=== PATIENT | male | born 1960 | race Caucasian/White ===

== ENCOUNTER 2016-08-16 01:54 | Emergency (ER) | payer BC ==
[2016-08-16] MEDS ORDERED: NS 1,000 ML IV ONE (02:05)
--- NOTE | 2016-08-16 02:08 | EDPHY ---
H & P Stated Complaint: Pain in the right flank Time Seen by Provider: 08/16/16 02:00 HPI/ROS: CHIEF COMPLAINT: right flank pain since 45 minutes prior to arrival HISTORY OF PRESENT ILLNESS: previously healthy 46-year-old male who has yet to see his family physician for several years. However, he states he has no underlying medical problems. He felt well during the day yesterday. There was a fair amount of sun exposure early in the day but no untoward problems. No syncope or palpitations. Did not recall anything that might have strained his back. He felt well when he went to bed. However he woke approximately 45 minutes prior to admission with a very intense, sharp sensation severe pain to the right flank. Took 200 mg of ibuprofen p.o. he found himself unable to hold still, pacing 2nd to the pain. He did fine resolve also nauseated but not diaphoretic. He did not vomit until he got here in the parking lot at which time he vomited once. As it is dark out he cannot tell if he has any blood or coffee-grounds. At home he did far urinate. Was not bloody to the naked eye. It hurt so bad that he had moved shifting could not hold still. He did not notice it to be any worse with movement itself. Pain itself overtime did improve to the point where he is only described as moderate at the time of my interview. Pichardo is a home was severe. Furthermore the pain is now expanded to include the right lower quadrant in fact, is actually worse than right quadrant at this point in time that it is in the back - either which is better as the back was, flank, when he was at home REVIEW OF SYSTEMS: Constitutional: No fever, no chills. Eyes: No discharge ENT: No sore throat, though agrees is membranes are dry at this point in time Cardiovascular: No chest pain, no palpitations. Respiratory: No cough, shortness of breath. Gastrointestinal: See above Genitourinary: See above Musculoskeletal: See above Skin: No rashes. Neurological: No headache. 10 point ROS otherwise negative Source: Patient Exam Limitations: No limitations - Personal History Current Tetanus/Diphtheria Vaccine: No Current Tetanus Diphtheria and Acellular Pertussis (TDAP): No - Medical/Surgical History Hx Asthma: No Hx Chronic Respiratory Disease: No Hx Diabetes: No Hx Cardiac Disease: No Hx Renal Disease: No Hx Cirrhosis: No Hx Alcoholism: No Hx HIV/AIDS: No Hx Splenectomy or Spleen Trauma: No - Family History Significant Family History: Other (Father with kidney stones/) - Social History Smoking Status: Never smoked Alcohol Use: None Drug Use: None Additional Social History: 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 - Physical Exam Exam: General Appearance: Alert, no distress. Afebrile. Normal phonation. No respiratory distress. Slightly pale. Not diaphoretic. Temperature normal Eyes: Pupils equal and round no pallor or injection. No icterus ENT, Mouth: Mucous membranes dry. Pharynx without erythema or exudate. TM Clear. Neck: No adenopathy. Supple. No JVD. Trachea in midline. Respiratory: There are no retractions, lungs are clear to auscultation. Cardiovascular: Regular rate and rhythm. Abdomen: Soft and nontender, no masses, bowel sounds normal. Femoral pulses equal, symmetrical, 2+. Neurological: Ox3. No motor weakness. Sensation intact. Gait nl. Skin: Warm and dry, no rashes. Musculoskeletal: No joint swelling. Extremities: No edema. Homans sign negative. No cords. Psychiatric: Normal affect. Constitutional: Initial Vital Signs Temperature (C) 36.8 C 08/16/16 01:55 Heart Rate 50 L 08/16/16 01:55 Respiratory Rate 16 08/16/16 01:55 Blood Pressure 162/94 H 08/16/16 01:55 O2 Sat (%) 93 08/16/16 01:55 O2 Delivery Mode Room Air Allergies/Adverse Reactions: No Known Allergies Allergy (Unverified 02/22/09 14:24) Home Medications: Medication Instructions Recorded Indomethacin [Indocin 25 mg (*)] 50 mg PO TID #30 cap 08/16/16 Ondansetron Odt [Zofran Odt 4 mg 8 mg PO TID PRN #5 tab 08/16/16 (*)] Oxycodone HCl 10 mg PO Q6H PRN #15 capsule 08/16/16 Tamsulosin HCl [Flomax 0.4 MG (*)] 0.4 mg PO DAILY #7 cap 08/16/16 Medical Decision Making - Diagnostics Imaging Results: CT scan as interpreted by the radiologist and discussed with radiologist and reviewed by me: 7 x 7 x 4 mm stone in the right mid ureter along with moderate hydronephrosis. Incidental findings of renal cyst as well as L2 compression fracture Imaging: Discussed imaging studies w/ scallop dredger Radiologist, I viewed and interpreted images myself ED Course/Re-evaluation: When initially interviewed the patient he declined fentanyl and excepted Toradol. He was given Toradol 30 mg IV with substantial improvement of his discomfort, he was virtually pain-free at discharge CT scan was performed. Without IV contrast. Upon my reading I see that he has a hydronephrosis on the right in a 8 x 3 mm stone on the right mid ureter overlying vertebral body 4 Reviewed with the patient the following: Kidney stone of such size that he may need lithotripsy per urology L2 compression fracture with stenosis Right renal cyst - which the radiologist is recommending that he have an ultrasound, to be ordered by his PCP or urologist The urinalysis did show hematuria but no signs of bacteria or white cells to be concerned with respect to possible infection. Laboratory studies did show preserved renal function with a creatinine 1.2 and stable hemogram. Differential Diagnosis: Differential diagnosis includes, but is not limited to: Gastroenteritis, dehydration, diverticulitis, hepatitis, cholecystitis, appendicitis, renal colic, pyelonephritis. - Data Points Laboratory Results: Laboratory Results 08/16/16 02:03 08/16/16 02:03 08/16/16 08/16/16 08/16/16 02:46 02:03 02:03 WBC 5.39 10^3/uL 10^3/uL (3.80-9.50) RBC 5.01 10^6/uL 10^6/uL (4.40-6.38) Hgb 14.9 g/dL g/dL (13.7-17.5) Hct 45.1 % % (40.0-51.0) MCV 90.0 fL fL (81.5-99.8) MCH 29.7 pg pg (27.9-34.1) MCHC 33.0 g/dL g/dL (32.4-36.7) RDW 13.8 % % (11.5-15.2) Plt Count 158 10^3/uL 10^3/uL (150-400) MPV 11.1 fL fL (8.7-11.7) Neut % (Auto) 62.4 % % (39.3-74.2) Lymph % (Auto) 26.7 % % (15.0-45.0) [place] % (Auto) 9.5 % % (4.5-13.0) Eos % (Auto) 0.4 % L % (0.6-7.6) Baso % (Auto) 0.6 % % (0.3-1.7) Nucleat RBC Rel Count 0.0 % % (0.0-0.2) Absolute Neuts (auto) 3.37 10^3/uL 10^3/uL (1.70-6.50) Absolute Lymphs (auto) 1.44 10^3/uL 10^3/uL (1.00-3.00) Absolute Monos (auto) 0.51 10^3/uL 10^3/uL (0.30-0.80) Absolute Eos (auto) 0.02 10^3/uL L 10^3/uL (0.03-0.40) Absolute Basos (auto) 0.03 10^3/uL 10^3/uL (0.02-0.10) Absolute Nucleated RBC 0.00 10^3/uL 10^3/uL (0-0.01) Immature Gran % 0.4 % % (0.0-1.1) Immature Gran # 0.02 10^3/uL 10^3/uL (0.00-0.10) Sodium 142 mEq/L mEq/L (134-144) Potassium 3.7 mEq/L mEq/L (3.5-5.2) Chloride 104 mEq/L mEq/L (97-110) Carbon Dioxide 23 mEq/l mEq/l (22-31) Anion Gap 15 mEq/L mEq/L (8-16) BUN 25 mg/dL H mg/dL (7-23) Creatinine 1.2 mg/dL mg/dL (0.7-1.3) Estimated GFR > 60 Glucose 116 mg/dL H mg/dL (70-100) Calcium 9.0 mg/dL mg/dL (8.5-10.4) Urine Color YELLOW Urine Appearance CLEAR Urine pH 5.0 (5.0-7.5) Ur Specific [place] 1.015 (1.002-1.030) Urine Protein NEGATIVE (NEGATIVE) Urine Ketones NEGATIVE (NEGATIVE) Urine Blood 3+ H (NEGATIVE) Urine Nitrate NEGATIVE (NEGATIVE) Urine Bilirubin NEGATIVE (NEGATIVE) Urine Urobilinogen 0.2 EU EU (0.2-1.0) Ur Leukocyte Esterase NEGATIVE (NEGATIVE) Urine RBC 25-50 /hpf H /hpf (0-3) Urine WBC 0-1 /hpf /hpf (0-3) Ur Epithelial Cells NONE SEEN /lpf /lpf (NONE-1+) Urine Mucus 2+ /lpf H /lpf (NONE-1+) Urine Glucose NEGATIVE (NEGATIVE) Medications Given: Discontinued Medications Sodium Chloride (Ns) 1,000 mls @ 0 mls/hr IV ONCE ONE PRN Reason: Wide Open Stop: 08/16/16 02:06 Last Admin: 08/16/16 02:05 Dose: 1,000 mls Ketorolac Tromethamine (Toradol) 30 mg IVP EDNOW ONE Stop: 08/16/16 02:10 Last Admin: 08/16/16 02:09 Dose: 30 mg Ondansetron HCl (Zofran Odt 4 Mg Prepack#2) 1 btl TAKEHOME EDNOW ONE Stop: 08/16/16 03:11 Last Admin: 08/16/16 03:30 Dose: 1 btl Oxycodone/Acetaminophen (Percocet 5/325mg Prepack#4) 1 btl TAKEHOME EDNOW ONE Stop: 08/16/16 03:11 Last Admin: 08/16/16 03:30 Dose: 1 btl Tamsulosin HCl (Flomax) 0.4 mg PO EDNOW ONE Stop: 08/16/16 03:12 Last Admin: 08/16/16 03:30 Dose: 0.4 mg Departure - Departure Disposition: Home, Routine, Self-Care Clinical Impression: Renal colic on right side, Ureterolithiasis Condition: Fair Instructions: Oxycodone/Acetaminophen (By mouth), Ondansetron (By mouth), Renal Colic (ED), Ureteral Stones (ED) Additional Instructions: Strain urine Call the urologist Return if the pain medications are not controlling her discomfort Take Indocin around the clock for the next 5 days Take the Flomax, regularly through the week Take the oxycodone and the Zofran as needed for the pain and nausea respectively when they return The radiologist is recommending a renal ultrasound to evaluate the renal cyst seen on her right kidney. Arrange this with her family doctor or the urologist. Referrals: Patient,NotPresent [Primary Care Provider] - As per Instructions Anu Reed MD [Medical Doctor] - As per Instructions Prescriptions: Indomethacin [Indocin 25 mg (*)] 50 mg PO TID #30 cap Ondansetron Odt [Zofran Odt 4 mg (*)] 8 mg PO TID PRN #5 tab PRN Reason: Nausea/Vomiting, Can'T Take Po Oxycodone HCl 10 mg PO Q6H PRN #15 capsule PRN Reason: pain Tamsulosin HCl [Flomax 0.4 MG (*)] 0.4 mg PO DAILY #7 cap
[2016-08-16] MEDS ORDERED: KETOROLAC 30 MG/1 ML SDV IVP ONE (02:09)
[2016-08-16] MEDS ORDERED: KETOROLAC 30 MG/1 ML SDV ONE (02:09)
[2016-08-16 02:13] LABS: % IMMATURE GRANULYOCYTES 0.4 % (0.0-1.1); ABSOLUTE IMMATURE GRANULOCYTES 0.02 10^3/uL (0.00-0.10); ADD DIFF? NO; ADD MORPH? NO; ADD SCAN? NO; ATYPICAL LYMPHOCYTE FLAG 10 (0-99); FRAGMENT RBC FLAG 0 (0-99); HEMATOCRIT 45.1 % (40.0-51.0); HEMOGLOBIN 14.9 g/dL (13.7-17.5); LEFT SHIFT FLG 0 (0-99); LIPEMIA HEMOLYSIS FLAG 80 (0-99); MEAN CELL HEMOGLOBIN 29.7 pg (27.9-34.1); MEAN PLATELET VOLUME 11.1 fL (8.7-11.7); PLATELET CLUMPS FLAG 10 (0-99); PLATELET COUNT 158 10^3/uL (150-400); RED BLOOD CELL COUNT 5.01 10^6/uL (4.40-6.38); RED CELL DISTRIBUTION WIDTH 13.8 % (11.5-15.2)
[2016-08-16 02:17] VITALS: TEMP 98.2
[2016-08-16 02:27] LABS: ANION GAP 15 mEq/L (8-16); CARBON DIOXIDE 23 mEq/l (22-31); CHLORIDE 104 mEq/L (97-110); CREATININE 1.2 mg/dL (0.7-1.3); GLOMERULAR FILTRATION RATE > 60; GLUCOSE 116 mg/dL (70-100); POTASSIUM 3.7 mEq/L (3.5-5.2); SODIUM 142 mEq/L (134-144)
[2016-08-16 02:58] LABS: COLOR YELLOW; LEUKOCYTE ESTERASE,URINE NEGATIVE (NEGATIVE); NITRITE,URINE NEGATIVE (NEGATIVE)
[2016-08-16 03:09] LABS: MUCUS 2+ /lpf (NONE-1+)
[2016-08-16 03:10] LABS: WBC,URINE 0-1 /hpf (0-3)
[2016-08-16] MEDS ORDERED: OXYCODONE/APAP 5/325MG PREPACK#4 BTL TAKEHOME ONE (03:10)
[2016-08-16] MEDS ORDERED: ONDANSETRON 4MG PREPACK#2 BTL TAKEHOME ONE (03:10)
[2016-08-16 03:11] LABS: RBC,URINE 25-50 /hpf (0-3)
[2016-08-16] MEDS ORDERED: TAMSULOSIN HCL 0.4 MG CAP PO ONE (03:11)
[2016-08-16 03:47] VITALS: BP 132/91; PULSE 55; RESP 15; O2SAT 95
== END 2016-08-16 03:40 | disposition home or self-care (01) ==
LOC: CED 01:54
DX: N20.1 Calculus of ureter (principal)
CPT/HCPCS: 74176-PO; 80048-PO; 81003-PO; 81015-PO; 85025-PO; 96374; J1885

== ENCOUNTER → 2016-08-18 | Outpatient (CLI) | payer BC | LOC: FIMAGING 09:16 | PROVIDERS: ATTEND Specialist | DX: N20.1 Calculus of ureter (principal); K59.00 Constipation, unspecified ==

== ENCOUNTER → 2016-08-26 | Outpatient (CLI) | payer BC | LOC: FIMAGING 13:08 | PROVIDERS: ATTEND Specialist | DX: N20.1 Calculus of ureter (principal) ==

== ENCOUNTER → 2016-09-20 | Outpatient (CLI) | payer BC | LOC: FIMAGING 09:02 | PROVIDERS: ATTEND Specialist | DX: N20.1 Calculus of ureter (principal) ==

== ENCOUNTER → 2016-10-01 | Outpatient (CLI) | payer BC | LOC: CIMAGING 15:41 | PROVIDERS: ATTEND Specialist | DX: N28.1 Cyst of kidney, acquired (principal); N13.30 Unspecified hydronephrosis; Z96.0 Presence of urogenital implants | CPT/HCPCS: 76770-PO ==

== ENCOUNTER → 2017-09-01 | Outpatient (CLI) | payer BC | LOC: FIMAGING 16:24 | PROVIDERS: ATTEND Family Medicine | DX: M79.89 Other specified soft tissue disorders (principal); M79.605 Pain in left leg ==

== ENCOUNTER 2018-01-23 06:33 | Emergency (ER) | payer BC ==
[2018-01-23] MEDS ORDERED: ONDANSETRON DISINTEGRATING 4 MG TAB PO ONE (06:52)
[2018-01-23] MEDS ORDERED: IBUPROFEN 600 MG TAB PO ONE (06:54)
--- NOTE | 2018-01-23 06:57 | EDPHY ---
H & P Smoking Status: Never smoked Time Seen by Provider: 01/23/18 06:44 HPI/ROS: This patient slipped on stairs shortly prior to arrival landing on left flank with 10/10 pain with movement to the area and moderate to severe pain at rest since the fall. He denies any other injuries from the incident. He has not taken any medication for the pain prior to arrival. His drove him here by private vehicle for evaluation. He did urinate prior to arrival in noticed no gross hematuria. ROS: Constitutional: No complaints neuro: No numbness or tingling Musculoskeletal: No other injuries 5 point ROS is otherwise negative (Marcell Edwards) Physical Exam: Physical Exam Vital signs are normal. General: No acute distress HEENT: Atraumatic. Neck: Nontender full range of motion intact without pain Eyes: Pupils equal and react to light. Extraocular motions are intact. Lungs: Clear to auscultation bilaterally. Cardiac: Regular rate and rhythm with no murmur gallop or rub Back: No midline tenderness. Patient has tenderness to the left lower posterior back area of intense the 12th rib region with no overlying ecchymosis. No crepitance is noted Skin: No rash or pallor. Neuro: Alert and oriented x3 with no sensorimotor deficits. He maintains normal light touch sensory exam bilateral lower extremities Initial differential diagnosis: Rib fracture, contusion, low back strain, ( Marcell Edwards) Constitutional: Initial Vital Signs Temperature (C) 36 C 01/23/18 06:36 Heart Rate 53 L 01/23/18 06:36 Respiratory Rate 16 01/23/18 06:36 Blood Pressure 128/85 H 01/23/18 06:36 O2 Sat (%) 95 01/23/18 06:36 O2 Delivery Mode Room Air Allergies/Adverse Reactions: No Known Allergies Allergy (Unverified 02/22/09 14:24) Home Medications: Medication Instructions Recorded Cyclobenzaprine [Flexeril] 10 mg PO TID #15 tab 01/23/18 Hydrocodone/APAP 5/325 [[place]arshall 1 - 2 tab PO Q4 #13 tab 01/23/18 5/325 (RX)] Ondansetron Odt [Zofran Odt 4 mg 4 mg PO Q4PRN PRN #7 tab 01/23/18 (*)] MDM/Departure - MDM Medications Given: Discontinued Medications Ibuprofen (Motrin) 600 mg PO EDNOW ONE Stop: 01/23/18 06:55 Last Admin: 01/23/18 07:19 Dose: 600 mg Ondansetron HCl (Zofran Odt) 8 mg PO EDNOW ONE Stop: 01/23/18 06:53 Last Admin: 01/23/18 06:57 Dose: 8 mg ED Course/Re-evaluation: Zofran for nausea the patient attributes to pain followed by ibuprofen Discussion: Patient with likely posterior rib injury from fall. No red flag findings on his exam I discussed this case with Dr. Lopez at 7:00 a.m. With x-rays pending. Please refer to his note for diagnostic study and disposition (Marcell Edwards) CXR: No pneumothorax or hemothorax. No visible displaced rib fracutre. 730: Discussed the results with the patient. Answered all his questions. He was given warnings prior to leaving. Will return with worsening symptoms. Pt was given flexeril, norco and zofran for his symptoms. (Micheline Lopez) - Depart Disposition: Home, Routine, Self-Care Clinical Impression: Contusion of rib on left side Qualifiers: Encounter type: initial encounter Qualified Code(s): S20.212A - Contusion of left front wall of thorax, initial encounter Condition: Good Instructions: Rib Contusion (ED) Additional Instructions: Return with increased pain, shortness of breath, fever, vomiting, bloody urine, or any other concerns. Prescriptions: Cyclobenzaprine [Flexeril] 10 mg PO TID #15 tab Hydrocodone/APAP 5/325 [Marshall 5/325 (RX)] 1 - 2 tab PO Q4 #13 tab Ondansetron Odt [Zofran Odt 4 mg (*)] 4 mg PO Q4PRN PRN #7 tab PRN Reason: For Nausea & Vomiting
[2018-01-23 08:07] VITALS: BP 118/82
== END 2018-01-23 08:03 | disposition home or self-care (01) ==
LOC: CED 06:33
DX: S20.212A Contusion of left front wall of thorax, initial encounter (principal); W10.9XXA Fall (on) (from) unspecified stairs and steps, initial encounter; Y99.8 Other external cause status
CPT/HCPCS: 71101-PO

== ENCOUNTER 2018-04-23 19:02 | Inpatient (IN) | payer BC ==
[2018-04-23] MEDS ORDERED: HYDROmorphONE/DILAUDID 2 MG/ML INJ IVP ONE (19:15)
[2018-04-23] MEDS ORDERED: NS 1,000 ML IV ONE ×2 (19:15→22:46)
--- NOTE | 2018-04-23 19:26 | EDPHY ---
H & P Stated Complaint: c/o N/V and lower abd pain since yesterday Time Seen by Provider: 04/23/18 19:09 HPI/ROS: CHIEF COMPLAINT: Motor abdominal pain and vomiting HISTORY OF PRESENT ILLNESS: Patient is a 57-year-old man with no past surgical history who comes to the emergency department complaining of bilateral lower abdominal pain. He states that he began vomiting yesterday and his symptoms have progressed throughout today. He did have a normal bowel movement yesterday but has not had 1 today. No fevers. No blood in his vomit. Does have a history of diverticulosis but not diverticulitis. Also history of kidney stones 2 years ago that required stenting. He states that this does not feel similar. No testicular pain, no penile discharge. He denies any difficulty with urination. He did present to an urgent care about 3 hr ago with concern for urinary tract infection. They did a urine dip that was positive for ketones but otherwise negative. They recommended he come to the ER. Severity: Severe Modifying factors: Slight improvement with Zofran REVIEW OF SYSTEMS: Constitutional: denies: chills, fever, recent illness, recent injury EENTM: denies: blurred vision, double vision, nose congestion Respiratory: denies: cough, shortness of breath Cardiac: denies: chest pain, irregular heart rate, lightheadedness, palpitations Gastrointestinal/Abdominal: See HPI Genitourinary: denies: dysuria, frequency, hematuria, pain Musculoskeletal: denies: joint pain, muscle pain Skin: denies: lesions, rash, jaundice, bruising Neurological: denies: headache, numbness, paresthesia, tingling, dizziness, weakness Hematologic/Lymphatic: denies: blood clots, easy bleeding, easy bruising Immunologic/allergic: denies: HIV/AIDS, transplant 10 systems reviewed and negative except as noted EXAM: GENERAL: Well-appearing, well-nourished and in no acute distress. HEAD: Atraumatic, normocephalic. EYES: Pupils equal round and reactive to light, extraocular movements intact, sclera anicteric, conjunctiva are normal. ENT: TMs normal, nares patent, oropharynx clear without exudates. Moist mucous membranes. NECK: Normal range of motion, supple without lymphadenopathy or JVD. LUNGS: Breath sounds clear to auscultation bilaterally and equal. No wheezes rales or rhonchi. HEART: Regular rate and rhythm without murmurs, rubs or gallops. ABDOMEN: Tender bilateral lower quadrants and suprapubic region. Slightly distended. Nonpulsatile. No rebound. BACK: No CVA tenderness, no spinal tenderness, step-offs or deformities EXTREMITIES: Normal range of motion, no pitting or edema. No clubbing or cyanosis. NEUROLOGICAL: Cranial nerves II through XII grossly intact. Normal speech, normal gait. 5/5 strength, normal movement in all extremities, normal sensation , normal reflexes PSYCH: Normal mood, normal affect. SKIN: Warm, dry, normal turgor, no visible rashes or lesions. Source: Patient Exam Limitations: No limitations - Personal History Current Tetanus Diphtheria and Acellular Pertussis (TDAP): Yes - Medical/Surgical History Hx Asthma: No Hx Chronic Respiratory Disease: No Hx Diabetes: No Hx Cardiac Disease: No Hx Renal Disease: No Hx Cirrhosis: No Hx Alcoholism: No Hx HIV/AIDS: No Hx Splenectomy or Spleen Trauma: No Other PMH: kidney stones - Family History Significant Family History: No pertinent family hx - Social History Smoking Status: Never smoked Alcohol Use: Sober Drug Use: None Constitutional: Initial Vital Signs Temperature (C) 37.6 C 04/23/18 19:12 Heart Rate 68 04/23/18 19:12 Respiratory Rate 18 04/23/18 19:12 Blood Pressure 155/82 H 04/23/18 19:12 O2 Sat (%) 97 04/23/18 19:12 O2 Delivery Mode Nasal Cannula O2 (L/minute) 2 Allergies/Adverse Reactions: No Known Allergies Allergy (Unverified 02/22/09 14:24) Medical Decision Making - Diagnostics EKG Interpretation: An EKG obtained and was read and documented in trace view. Please see trace view for full reading and report. Sinus rhythm, no acute ischemic changes Imaging Results: Imaging Impressions Abdomen CT 04/23/18 19:16 Impression: 1. Acute ruptured appendicitis with a linear radiopaque foreign object at the base of the appendix extending minimally into the cecum, possibly representing an appendicolith or ingested material. No visible abscess. 2. Nonobstructing right nephrolithiasis. 3. Additional findings as above. Findings discussed with Dr. Alberto Thompson on April 23, 2018 at 2036 hours. Imaging: Discussed imaging studies w/ fisher scallop Radiologist ED Course/Re-evaluation: It did place a bedside ultrasound. The patient does not have a distended urinary bladder. He does appear to have some fluid outside of the bladder however. It is quite tender. I did attempt to visualize the aorta but was unsuccessful. 8:40 p.m. discussed the case with Dr. Gutierrez who accepted to the ER. Discussed the case with the patient. Will start antibiotics. Pain currently controlled. Differential Diagnosis: Partial list of the Differential diagnosis considered include but were not limited to; appendicitis, urinary retention, urinary tract infection, diverticulitis and although unlikely based on the history and physical exam, I also considered biliary disease, obstruction, volvulus. - Data Points Laboratory Results: Laboratory Results 04/23/18 21:15 04/23/18 04/23/18 21:15 19:32 WBC 13.96 10^3/uL H 10^3/uL (3.80-9.50) RBC 4.98 10^6/uL 10^6/uL (4.40-6.38) Hgb 15.1 g/dL g/dL (13.7-17.5) Hct 46.0 % % (40.0-51.0) MCV 92.4 fL fL (81.5-99.8) MCH 30.3 pg pg (27.9-34.1) MCHC 32.8 g/dL g/dL (32.4-36.7) RDW 13.9 % % (11.5-15.2) Plt Count 180 10^3/uL 10^3/uL (150-400) MPV 11.6 fL fL (8.7-11.7) Neut % (Auto) Pending Lymph % (Auto) Pending [place] % (Auto) Pending Eos % (Auto) Pending Baso % (Auto) Pending Nucleat RBC Rel Count Pending Absolute Neuts (auto) Pending Absolute Lymphs (auto) Pending Absolute Monos (auto) Pending Absolute Eos (auto) Pending Absolute Basos (auto) Pending Absolute Nucleated RBC Pending Immature Gran % Pending Immature Gran # Pending Platelet Estimate Pending POC Sodium 135 mEq/L mEq/L (135-145) POC Potassium 4.1 mEq/L mEq/L (3.3-5.0) POC Chloride 101.0 mEq/L mEq/L (97-110) POC Total CO2 25 mEq/L mEq/L (22-31) POC BUN 18 mg/dL mg/dL (7-23) POC Creatinine 0.8 mg/dL mg/dL (0.7-1.3) POC Glucose 134 mg/dL H mg/dL (70-100) POC Calcium 8.9 mg/dL mg/dL (8.5-10.4) POC Total Bilirubin 3.1 mg/dL H mg/dL (0.1-1.4) POC AST 39 IU/L IU/L (17-59) POC ALT 33 IU/L IU/L (21-72) POC Alk Phosphatase 51 IU/L IU/L (38-126) POC Total Protein 6.6 g/dL g/dL (6.3-8.2) POC Albumin 4.1 g/dL g/dL (3.5-5.0) Medications Given: Discontinued Medications Hydromorphone HCl (Dilaudid) 0.5 mg IVP EDNOW ONE Stop: 04/23/18 19:16 Last Admin: 04/23/18 19:53 Dose: 0.5 mg Sodium Chloride (Ns) 1,000 mls @ 0 mls/hr IV EDNOW ONE; Wide Open PRN Reason: Protocol Stop: 04/23/18 19:16 Last Admin: 04/23/18 19:53 Dose: 1,000 mls Ceftriaxone Sodium/Dextrose (Rocephin 1 Gm (Premix)) 50 mls @ 100 mls/hr IV EDNOW ONE PRN Reason: Protocol Stop: 04/23/18 21:10 Last Admin: 04/23/18 21:17 Dose: 50 mls Metronidazole/Sodium Chloride (Flagyl 500 Mg (Premix)) 100 mls @ 100 mls/hr IV EDNOW ONE PRN Reason: Protocol Stop: 04/23/18 21:40 Last Admin: 04/23/18 21:06 Dose: 100 mls Point of Care Test Results: Chemistry 04/23/18 19:32 POC Sodium 135 mEq/L mEq/L (135-145) POC Potassium 4.1 mEq/L mEq/L (3.3-5.0) POC Chloride 101.0 mEq/L mEq/L (97-110) POC Total CO2 25 mEq/L mEq/L (22-31) POC BUN 18 mg/dL mg/dL (7-23) POC Creatinine 0.8 mg/dL mg/dL (0.7-1.3) POC Glucose 134 mg/dL H mg/dL (70-100) POC Calcium 8.9 mg/dL mg/dL (8.5-10.4) POC Total Bilirubin 3.1 mg/dL H mg/dL (0.1-1.4) POC AST 39 IU/L IU/L (17-59) POC ALT 33 IU/L IU/L (21-72) POC Alk Phosphatase 51 IU/L IU/L (38-126) POC Total Protein 6.6 g/dL g/dL (6.3-8.2) POC Albumin 4.1 g/dL g/dL (3.5-5.0) Departure - Departure Disposition: [facility] ER Clinical Impression: Ruptured appendicitis Condition: Fair Referrals: NONE *PRIMARY CARE P,. [Primary Care Provider] - As per Instructions
--- NOTE | 2018-04-23 19:36 | CPEKG ---
Test Reason : OPEN Blood Pressure : / mmHG Vent. Rate : 066 BPM Atrial Rate : 067 BPM P-R Int : 145 ms QRS Dur : 095 ms QT Int : 395 ms P-R-T Axes : 039 008 -08 degrees QTc Int : 414 ms Sinus rhythm Left atrial enlargement Confirmed by Alberto Thompson ([id number]) on 04/23/2018 7:36:15 PM Referred By: Confirmed By:Alberto Thompson
[2018-04-23] MEDS ORDERED: ONDANSETRON 4 MG/2 ML VIAL ONE (19:51)
[2018-04-23] MEDS ORDERED: IOPAMIDOL (ISOVUE-370) 150 ML BTL IV ONE (19:53)
[2018-04-23 21:41] LABS: PLATELET COUNT 180 10^3/uL (150-400)
[2018-04-23] MEDS ORDERED: HYDROmorphONE/DILAUDID 1 MG/ML INJ IVP PRN (23:20)
[2018-04-23] MEDS ORDERED: ONDANSETRON 4 MG/2 ML VIAL IVP PRN (23:20)
[2018-04-23] MEDS ORDERED: LR 1,000 ML IV SCH (23:30)
[2018-04-23] MEDS ORDERED: MIDAZOLAM 2 MG/2 ML VIAL ONE (23:42)
[2018-04-23] MEDS ORDERED: MIDAZOLAM 2 MG/2 ML VIAL IVP ONE (23:43)
--- NOTE | 2018-04-23 23:44 | PDANEPAE ---
ANE Past Medical History - Pulmonary History Hx Oxygen in Use at Home: No Hx Sleep Apnea: No - Endocrine History Hx Diabetes: No ANE Review of Systems Review of Systems: ANE Patient History - Allergies Allergies/Adverse Reactions: No Known Allergies Allergy (Unverified 02/22/09 14:24) - NPO status NPO Since - Liquids (Date): 04/23/18 NPO Since - Liquids (Time): 15:00 NPO Since - Solids (Date): 04/23/18 NPO Since - Solids (Time): 12:00 - Smoking Hx Smoking Status: Never smoked - Alcohol Use Alcohol Use: Sober ANE Labs/Vital Signs - Labs Result Diagrams: 04/23/18 21:15 - Vital Signs Blood Pressure: 119/75 Heart Rate: 63 Respiratory Rate: 95 O2 Sat (%): 2 Weight: 83.915 kg ANE Physical Exam - Airway Neck exam: FROM Mallampati Score: Class 2 Mouth exam: normal dental/mouth exam - Pulmonary Pulmonary: no respiratory distress - Cardiovascular Cardiovascular: regular rate and rhythym - ASA Status ASA Status: II ANE Anesthesia Plan Anesthesia Plan: general endotracheal anesthesia
[2018-04-23] MEDS ORDERED: PROPOFOL 200 MG/20 ML VIAL ONE (23:49)
[2018-04-24] MEDS ORDERED: ceFAZolin 1 GM/5 ML SYR ONE ×2 (00:14→00:51)
[2018-04-24] MEDS ORDERED: HEPARIN 5,000 UNIT/0.5 ML INJ ONE ×2 (00:14→00:52)
--- NOTE | 2018-04-24 00:27 | GHP ---
DATE OF ADMISSION: 04/23/2018 ADMITTING DIAGNOSIS: Acute possibly ruptured appendicitis. HISTORY: The patient is a 57-year-old male who was in his usual state of health until spin class on Tuesday morning. After spin class at 9:30 to 10 o' clock in the morning, he had a small amount of yogurt. He developed a pain that went across his mid and lower abdomen. He had subsequent vomiting and he did move his bowels. He had increasing abdominal pain. He tried Tylenol and ibuprofen without results. His urine was darker this morning. He had only toast. For lunch, he had half a protein bar and half an apple. He was not hungry. He went to urgent care and was found to have an edematous appendix with 2 appendicoliths. There is no history of recent upper respiratory tract infection or diarrhea. There is no history of travel outside the [place] or antibiotic use. He has no prior abdominal surgery. There is no history of inflammatory bowel disease. SOCIAL HISTORY: He does not smoke. He had 1 drink on Penny, but other than that, nothing recently. ALLERGIES: He has no known drug allergies. MEDICATIONS: He is not taking any medications. PAST SURGICAL HISTORY: His only surgeries include a lithotripsy for renal stone and wisdom tooth extraction. There is no history of rheumatic fever, tuberculosis, hepatitis, or transfusions. REVIEW OF SYSTEMS: He wears contacts for visual correction. He has dental crowns. There is no history of bleeding disorders, clotting disorders, difficulty with anesthesia. He had 1 renal stone in the past and apparently has a current 1 identified on CAT scan today. His only manifestation of prostatism is nocturia x2. There are no limits on his activities. No history of steroid use. He has an elevated white count (his labs are not available at this time for review). PHYSICAL EXAMINATION: GENERAL: He is awake, pleasant, and alert. NEUROLOGIC: He is oriented to person, place, and time. No focal lateralizing neurologic findings. HEAD: Skull is normocephalic, atraumatic. NECK: Nontender. There are no carotid bruits. Thyroid is not enlarged. LYMPHATIC: There is no cervical, supraclavicular, axillary or inguinal lymphadenopathy. BACK: Unremarkable. LUNGS: Clear to auscultation. CARDIAC: Shows S1, S2 to be normal. Normal split S2, without murmurs, rubs, or gallops. EXTREMITIES: Upper extremities are unremarkable. The lower extremities are unremarkable. ABDOMEN: Psoas and obturator are negative. He is tender with cough in the medial right lower quadrant at a level of 3. He does not have any guarding. Bowel sounds are distinctly hypoactive. To palpation, left upper quadrant is 1 on a scale of 1-10, left mid abdomen is 4, left lower quadrant is 1, epigastrium is 1, periumbilical region is 4, suprapubic area is 1, right upper quadrant is 1, right mid abdomen is 3, right lower quadrant is 4. IMAGING: The CAT scan does show a right renal cyst. It has been evaluated in the past. He does have a new kidney stone in the right kidney. He has an appendix which is edematous. There is a question of discontinuity in the midportion consistent with a possible rupture. There is a small fecalith in the tip and a longer one crossing the appendiceal/cecal junction. I do not see free fluid in the pelvis. There is periappendiceal stranding. PLAN: Laparoscopic appendectomy. The patient understands the planned procedure. He understands the concerns about a ruptured appendix and what that might mean for further infectious issues and hospitalization. /[id number]/MODL MTDD
[2018-04-24] MEDS ORDERED: MEPERIDINE 25 MG/0.5 ML AMP IVP PRN (00:49)
[2018-04-24] MEDS ORDERED: fentaNYL 100 MCG/2 ML INJ IVP PRN (00:49)
[2018-04-24] MEDS ORDERED: ONDANSETRON 4 MG/2 ML VIAL IVP PRN (00:49)
[2018-04-24] MEDS ORDERED: NALOXONE HCL 0.4 MG/ML INJ IVP PRN (00:49)
[2018-04-24] MEDS ORDERED: ALBUTEROL 3 ML DEYVIAL IH PRN (00:49)
--- NOTE | 2018-04-24 01:32 | POSTANESTH ---
Post Anesthetic Evaluation Cardiovascular Status: Similar to Pre-Op Cond Respiratory Status: Similar to Pre-op Cond. Level of Consciousness/Mental Status: Mildly Sleepy, Arousable Pain Control: Adequate, Prn Tx Ordered Nausea/Vomiting Control: Adequate, Prn Tx Ordered Complications Possibly Related to Anesthesia: None Noted
--- NOTE | 2018-04-24 01:46 | POSTOPPROG ---
Post Op Note Date of Operation: 04/24/18 Surgeon: Jameson Gutierrez Anesthesia: GET(General Endotracheal) Pre-op Diagnosis: Acute, possible ruptured, appendicitis with two appendicoliths Post-op Diagnosis: Acute, gangrenous/ruptured, appendicitis with two appendicoliths Indication: Acute, possible ruptured, appendicitis with two appendicoliths Procedure: laparoscopic appendectomy Findings: Acute, gangrenous/ruptured, appendicitis with two appendicoliths Inf/Abcess present in the surg proc area at time of surgery?: Yes Depth: Organ Space EBL: Minimal Total fluids administered: 700 Complications: none Drains: Jim Driver (7 mm) Specimen(s): appendix, peritoneal fluid culture
[2018-04-24] MEDS: ACETAMINOPHEN 500 MG TAB PO SCH ×4 (02:34→18:35)
[2018-04-24] MEDS: KETOROLAC 15 MG/1 ML SDV IVP SCH ×5 (02:34→20:41)
[2018-04-24 06:19] LABS: PLATELET COUNT 156 10^3/uL (150-400)
--- NOTE | 2018-04-24 08:17 | SOAPPROG ---
SOAP Progress Note Assessment/Plan: Assessment: 57 y/o M s/p lap appy for gangrenous ruptured appendix POD #1 S: Feeling well overall. Pain controlled. Denies passing gas yet. O: Alert Afebrile VSS RRR No increased WOB Abdomen: soft, nontender, nondistended, incisions cdi, FARHAN drain in place with sanguinopurulent drainage, hypoactive bowel sounds Plan: Dispo: continue inpt status. Continue IV abx. Continue clear liquids. 04/24/18 08:15 Objective: Vital Signs Temp Pulse Resp BP Pulse Ox 36.4 C 63 14 114/70 94 04/24/18 07:18 04/24/18 07:18 04/24/18 07:18 04/24/18 07:18 04/24/18 07:18 Laboratory Results 04/24/18 06:00 04/24/18 06:00 04/23/18 04/24/18 04/25/18 05:59 05:59 05:59 Intake Total 720 Output Total 1075 Balance -355 ICD10 Worksheet Patient Problems: Problems Problem Status Onset Ruptured appendicitis Acute
--- NOTE | 2018-04-24 10:40 | GOP ---
DATE OF OPERATION: 04/24/2018 SURGEON: Jameson Gutierrez MD ANESTHESIA: General endotracheal. PREOPERATIVE DIAGNOSIS: Acute possibly ruptured appendicitis with 2 appendicoliths. POSTOPERATIVE DIAGNOSIS: Acute gangrenous/ruptured appendicitis with 2 appendicoliths. PROCEDURE PERFORMED: Laparoscopic appendectomy. Infection present: Deep organ space. FINDINGS: Acute gangrenous/ruptured appendicitis with 2 appendicoliths. SPECIMENS: Appendix and peritoneal fluid culture. ESTIMATED BLOOD LOSS: Minimal. INDICATIONS: Acute possibly ruptured appendicitis with 2 appendicoliths. DESCRIPTION OF PROCEDURE: The patient was placed on the operating table in supine position. After induction of adequate general endotracheal anesthesia, a surgical time-out was carried out and agreed to by all members of the operative team. The abdomen was now carefully clipped, prepped, and draped. A curvilinear incision was planned in the infraumbilical fold. A sharp incision was made to the skin and incision was deepened with a combination of Bovie electrocautery and a spreading technique to expose the anterior rectus sheath bilaterally. This was elevated between Allis clamps. The fascia was divided in midline. Pursestring 0 PDS was placed. An 11-12 mm disposable Delia trocar was positioned. Intra-abdominal insufflation was carried out to 15 mmHg. The left lower quadrant oblique 5 mm skin incision was made as is a transverse suprapubic skin incision. 5 mm ports were placed through both sites. The appendix has ruptured and dark brown purulent peritoneal fluid is noted. This is aspirated for culture. Irrigation was carried out with heparin and Ancef-containing irrigant at multiple points throughout the case. Two liters is used. The patient is now rotated 5 degrees to the left. The appendix was an inflammatory mass. The cecum was 1st mobilized proximally ( laterally). The appendix was then mobilized. This was done with a combination of Harmonic Scalpel and blunt technique. The mesoappendix was divided down to its base on the cecum. The cecum has been cleared circumferentially. The terminal ileum's junction with the cecum was very close to the appendix. The appendix was carefully elevated at its base. An oblique incision using 45 mm Endo-ANGELITA stapler was used to take a portion of the the cecum and the appendix. Once this was completed, the appendix was placed in an EndoCatch bag. It appears to be a good closure. It appears I have been able to avoid incorporating the appendicolith within the staple line. The specimen was delivered through the umbilical port site. Pneumoperitoneum was re-established. Copious irrigation was carried out. The small bowel was run for a distance of approximately 3.5 feet. There was no evidence of mesenteric adenitis or a Meckel diverticulum. Hernias were not appreciated. A 7 flat FARHAN drain was placed in the right pericolic gutter and also laid into the pelvis. It was then brought out through the left lower quadrant 5 mm port site. The remaining ports were removed under direct vision. Inverted simple suture of #0 PDS was placed in the midpoint of the infraumbilical midline fascial defect. This was tied. The pursestring is now tied. The umbilical site has a small amount of bleeding and persistent search was carried out. Cautery was used to achieve hemostasis. The FARHAN drain was sutured in with a 3-0 silk suture. Inverted simple sutures of #4-0 Vicryl used to close all skin incisions. Mastisol and Steri-Strips were applied to the suprapubic and umbilical site. Band-Aids were positioned. 4x4s used as a dressing for the drain. The patient tolerated the procedure well and was transferred to recovery in stable and satisfactory condition. FLUIDS: 700 cc. DRAINS: 7 mm Jim-Driver. /[id number]/MODL MTDD
[2018-04-24] MEDS: D5W 1/2 NS W/ 20 KCl/L 1,000 ML IV SCH (10:49)
--- NOTE | 2018-04-24 15:10 | PDMN ---
Medical Necessity Medical necessity: MCG: S 185 appendectomy, with abscess or peritonitis , by Lap 2 days: OP: Lap appy - acute, gangrenous/ruptured appendicitis with 2 appendicoliths. - FARHAN drain placed.
[2018-04-25] MEDS: ACETAMINOPHEN 500 MG TAB PO SCH ×3 (02:03→19:28)
[2018-04-25] MEDS: KETOROLAC 15 MG/1 ML SDV IVP SCH ×4 (02:04→20:09)
[2018-04-25] MEDS: D5W 1/2 NS W/ 20 KCl/L 1,000 ML IV SCH (02:07)
--- NOTE | 2018-04-25 11:29 | SOAPPROG ---
SOAP Progress Note Assessment/Plan: POD#2 04/25/18 11:27 Assessment: Doing well, VSS, FARHAN drainage clear, C&S pending, passing gas, taking clear liquids Plan: continue antibiotics, get F/u CBC in am. Subjective: I'm passing but no stool gas yet Objective: Vital Signs Temp Pulse Resp BP Pulse Ox 36.8 C 58 L 16 125/85 H 92 04/25/18 08:00 04/25/18 08:00 04/25/18 08:00 04/25/18 08:00 04/25/18 08:00 04/24/18 04/25/18 04/26/18 05:59 05:59 05:59 Intake Total 1850 1305 Output Total 730 355 Balance 1120 950 - Time Spent With Patient Time Spent With Patient: 25 - Pending Discharge Pending Discharge Within 24 Hours: No Physical Exam - Physical Exam General Appearance: WD/WN, alert, no apparent distress Neck: non-tender, full range of motion, supple Respiratory: chest non-tender, lungs clear, normal breath sounds Cardiac/Chest: regular rate, rhythm Abdomen: normal bowel sounds, non-tender, soft, other (incisions clean and dry) Male Genitalia: deferred Rectal: deferred Back: Normal inspection Skin: normal color, warm/dry Extremities: normal range of motion, non-tender Neuro/Psych: no motor/sensory deficits, alert, normal mood/affect, oriented x 3 ICD10 Worksheet Patient Problems: Problems Problem Status Onset Ruptured appendicitis Acute
[2018-04-26] MEDS: KETOROLAC 15 MG/1 ML SDV IVP SCH ×4 (02:16→20:17)
[2018-04-26] MEDS: ACETAMINOPHEN 500 MG TAB PO SCH ×5 (03:37→21:30)
[2018-04-26 04:21] LABS: PLATELET COUNT 173 10^3/uL (150-400)
--- NOTE | 2018-04-26 13:38 | SOAPPROG ---
SOAP Progress Note Assessment/Plan: POD#2 04/25/18 11:27 Assessment: Doing well, VSS, FARAHN drainage clear, C&S pending, passing gas, taking clear liquids Plan: continue antibiotics, get F/u CBC in am. POD#3 04/26/18 13:35 Assessment: Doing better than expected! Afebrile VSS, Passing gas but no stool, WBC okay, Taking clear liquids Drain out, incisions clean and dry, pain well controlled Plan: regular diet Re-assess this PM re: discharge Subjective: No stool yet Objective: Vital Signs Temp Pulse Resp BP Pulse Ox 36.9 C 58 L 18 141/87 H 94 04/26/18 12:00 04/26/18 12:00 04/26/18 12:00 04/26/18 12:00 04/26/18 12:00 Laboratory Results 04/26/18 03:45 04/26/18 03:45 04/25/18 04/26/18 04/27/18 05:59 05:59 05:59 Intake Total 1850 3945 Output Total 730 3450 550 Balance 1120 495 -550 - Time Spent With Patient Time Spent With Patient: 15 - Pending Discharge Pending Discharge Within 24 Hours: Yes Pending Discharge Date: 04/27/18 Pending Discharge Time: 11:00 Physical Exam - Physical Exam General Appearance: WD/WN, alert, no apparent distress Respiratory: chest non-tender, lungs clear, normal breath sounds Cardiac/Chest: regular rate, rhythm Abdomen: normal bowel sounds, non-tender, soft, other (FARHAN output serous up ) Male Genitalia: deferred Rectal: deferred Back: Normal inspection Skin: normal color, warm/dry Neuro/Psych: no motor/sensory deficits, alert, normal mood/affect, oriented x 3 ICD10 Worksheet Patient Problems: Problems Problem Status Onset Ruptured appendicitis Acute
--- NOTE | 2018-04-26 19:10 | GDS ---
DISCHARGE DIAGNOSIS: Ruptured appendix with focal peritonitis. PROCEDURE: Laparoscopic appendectomy with drain placement. CONDITION AT DISCHARGE: Improved. There are no restrictions on his diet, but I have recommended that he avoid constipating foods such as bananas, rice, applesauce, and cheese. There are no restrictions on the texture. MEDICATIONS AT DISCHARGE: Include Tylenol 1000 mg every 8 hours, ibuprofen 200 mg every 6 hours, and for breakthrough pain Dilaudid 2 to 4 mg every 4 hours. DISCHARGE INSTRUCTIONS: For 3 weeks, he is to lift less than 10 pounds. He is to keep his Steri-Strips in place and to shower only. He is to take a multivitamin with 100% of the recommended daily allowances of zinc, copper, and C daily for 3 weeks. He is to watch for signs of infection for 2 weeks after his antibiotics are completed. Superficial infection would be demonstrated with redness, warmth, swelling, and tenderness at the incision. Deep infection would be manifested by fevers, chills, loss of appetite, abdominal pain, or general malaise. He will follow up with Dr. Noe Gastelum in 2 weeks. I have recommended that when he goes back to work that he should work less than 4 hours for the first 2 days to make sure he can tolerate it. His drain was removed and he did pass stool today. He is set for discharge /[id number]/MODL MTDD
[2018-04-26] MEDS ORDERED: ONDANSETRON DISINTEGRATING 4 MG TAB PO PRN (19:23)
[2018-04-26] MEDS ORDERED: ONDANSETRON 4 MG/2 ML VIAL IVP PRN (19:23)
[2018-04-26 20:52] VITALS: BP 137/85
== END 2018-04-26 21:30 | disposition home or self-care (01) | DRG 340 ==
LOC: CED 19:02 → FSGY 23:12 → FOB 04-24 02:11 → OBSVTOIN 04-24 15:04
PROVIDERS: ADMIT Surgery; ATTEND Surgery
PROC: 0DTJ4ZZ Resection of Appendix, Percutaneous Endoscopic Approach (ICD-10-PCS; principal; 2018-04-24)
DX: K35.32 Acute appendicitis with perforation, localized peritonitis, and gangrene, without abscess (principal); E86.9 Volume depletion, unspecified
CPT/HCPCS: 74177-PO; 80053-ER; 96374; J0696; J1170; J1644; J1885; J2250; J2405; J2704; Q9967